=== PATIENT | female | born 1995 | race Caucasian/White ===

== ENCOUNTER 2018-02-17 03:46 | Emergency (ER) | payer BC ==
[2018-02-17] MEDS ORDERED: NS 1,000 ML IV ONE (04:02)
[2018-02-17] MEDS ORDERED: KETOROLAC 15 MG/1 ML SDV IVP ONE (04:02)
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
[2018-02-17 04:29] LABS: PLATELET COUNT 182 10^3/uL (150-400)
[2018-02-17 04:39] LABS: INR 1.02 (0.83-1.16); PROTIME(PATIENT) 13.6 SEC (12.0-15.0)
[2018-02-17 06:26] VITALS: BP 124/89
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
== END 2018-02-17 06:25 | disposition home or self-care (01) ==
LOC: EDUNIT#
DX: S37.032A Laceration of left kidney, unspecified degree, initial encounter (principal); J45.909 Unspecified asthma, uncomplicated; E86.9 Volume depletion, unspecified; V18.4XXA Pedal cycle driver injured in noncollision transport accident in traffic accident, initial encounter; Y92.89 Other specified places as the place of occurrence of the external cause; Y99.8 Other external cause status; Y93.55 Activity, bike riding
CPT/HCPCS: 96374; J1885

== ENCOUNTER 2018-08-31 12:07 | Emergency (ER) | payer BC ==
--- NOTE | 2018-08-31 12:36 | EDPHY ---
H & P Stated Complaint: hx epilepsy/for last month having ? seizures/not eating insomnia Time Seen by Provider: 08/31/18 12:35 HPI/ROS: HPI: This is a 22-year-old female who presents with Chief Complaint: hx epilepsy/for last month having ? seizures/not eating insomnia Location: Body Quality: Seizure-like activity Duration: 1 month Signs and Symptoms: No fever, no neck stiffness, no headache, no chest pain, no shortness of breath, no abdominal pain, no nausea, no vomiting, no tongue biting, no incontinence Timing: Acute on chronic Severity: [id number] Context: Patient has a history of epilepsy that was diagnosed in October of 2017 at the [facility] in [place]. Patient reports that she had an EEG performed at that time and was placed on Keppra. She took Keppra for short amount of time but due to side effects stopped taking it. She is now a student at [employer]. Reports increased stress over the last month or so. She has not been eating and has not been sleeping very well due to worrying about her seizure-like activity. Patient reports that there has been 3 instances where she has seizures that are was unwitnessed. Denies any tongue biting, incontinence, injury. LMP 2-3 weeks ago. Denies drug use. Patient's boyfriend at bedside reports that seizure activity appears with her falling to the ground and then shaking her entire body once on the ground. This only last for a few seconds. Modifying Factors: None Comment: ROS: A comprehensive 10 system review of systems is otherwise negative aside from elements mentioned in the history of present illness. MEDICAL/SURGICAL/SOCIAL HISTORY: Medical history: Epilepsy. Takes control pills. Surgical history: Denies Social history: Never smoked. Family history noncontributory. CONSTITUTIONAL: Tearful, well-developed, well nourished, young adult white female awake and alert, no obvious distress HEENT: Atraumatic and normocephalic, PERRL, EOMI. Nares patent; no rhinorrhea; no nasal mucosal edema. Tympanic membranes clear. Oropharynx clear, no exudate and moist pink mucosa. Airway patent. No lymphadenopathy. No meningismus. Cardiovascular: Normal S1/S2, regular rate, regular rhythm, without murmur rub or gallop. PULMONARY/CHEST: Symmetrical and nontender. Clear to auscultation bilaterally. Good air movement. No accessory muscle usage. ABDOMEN: Soft, nondistended, nontender, no rebound, no guarding, no peritoneal signs, no masses or organomegaly. No CVAT. EXTREMITIES: 2/2 pulses, strength 5/5, no deformities, no clubbing, no cyanosis or edema. NEUROLOGICAL: no focal neuro deficits. GCS 15. Normal cerebellar testing. Cranial nerves 2-12 grossly intact. Speech clear. SKIN: Warm and dry, no erythema. no rash. Good capillary refill. Source: Patient Exam Limitations: No limitations - Personal History LMP (Females 10-55): 22-28 Days Ago Current Tetanus Diphtheria and Acellular Pertussis (TDAP): Yes Tetanus Vaccine Date: < 10 - Medical/Surgical History Hx Asthma: Yes Hx Chronic Respiratory Disease: No Hx Diabetes: No Hx Cardiac Disease: No Hx Renal Disease: No Hx Cirrhosis: No Hx Alcoholism: No Hx HIV/AIDS: No Hx Splenectomy or Spleen Trauma: No Other PMH: epilepsy - Social History Smoking Status: Never smoked Constitutional: Initial Vital Signs Temperature (C) 36.7 C 08/31/18 12:11 Heart Rate 73 08/31/18 12:11 Respiratory Rate 18 08/31/18 12:11 Blood Pressure 121/79 H 08/31/18 12:11 O2 Sat (%) 97 08/31/18 12:11 O2 Delivery Mode Room Air Allergies/Adverse Reactions: No Known Allergies Allergy (Verified 08/31/18 12:09) Home Medications: Medication Instructions Recorded Bcp 02/17/18 Keppra 02/17/18 Medical Decision Making - Diagnostics Imaging Results: Imaging Impressions Head CT 08/31/18 12:37 Impression: No acute intracranial findings. If symptoms persist and clinical suspicion warrants, consider MRI. Findings discussed with Mary Menjivar 08/31/2018 at 13:48. ED Course/Re-evaluation: Vital signs reviewed and stable upon arrival. IV access and laboratory studies ordered. Due to recurrence seizure-like activity, head CT scan ordered 1320: Labs reviewed. No signs of leukocytosis/anemia/platelet dysfunction/WILL/ electrolyte imbalance/. 1355: Called by Radiology who advised head CT scan shows no acute intracranial process. Patient is appropriate to be discharged home with outpatient neurology follow- up. She has politely declined to restart her Keppra until further discussion with Neurology. Also gave her referral to Internal Medicine to establish primary care. This patient was seen under the supervision of my secondary supervising physician. I evaluated care for this patient independently. Discussed this patient with Dr. Ochoa. Differential Diagnosis: Seizure including but not limited to electrolyte abnormality, alcohol withdrawal , medication noncompliance, head injury, and breakthrough seizure. - Data Points Laboratory Results: Laboratory Results 08/31/18 12:25 08/31/18 12:25 08/31/18 08/31/18 08/31/18 12: 12: 12:25 WBC 4.69 10^3/uL 10^3/uL (3.80-9.50) RBC 5.00 10^6/uL 10^6/uL (4.18-5.33) Hgb 15.5 g/dL g/dL (12.6-16.3) Hct 45.7 % % (38.0-47.0) MCV 91.4 fL fL (81.5-99.8) MCH 31.0 pg pg (27.9-34.1) MCHC 33.9 g/dL g/dL (32.4-36.7) RDW 13.1 % % (11.5-15.2) Plt Count 313 10^3/uL 10^3/uL (150-400) MPV 10.6 fL fL (8.7-11.7) Neut % (Auto) 56.3 % % (39.3-74.2) Lymph % (Auto) 32.0 % % (15.0-45.0) [place] % (Auto) 10.0 % % (4.5-13.0) Eos % (Auto) 0.2 % L % (0.6-7.6) Baso % (Auto) 1.3 % % (0.3-1.7) Nucleat RBC Rel Count 0.0 % % (0.0-0.2) Absolute Neuts (auto) 2.64 10^3/uL 10^3/uL (1.70-6.50) Absolute Lymphs (auto) 1.50 10^3/uL 10^3/uL (1.00-3.00) Absolute Monos (auto) 0.47 10^3/uL 10^3/uL (0.30-0.80) Absolute Eos (auto) 0.01 10^3/uL L 10^3/uL (0.03-0.40) Absolute Basos (auto) 0.06 10^3/uL 10^3/uL (0.02-0.10) Absolute Nucleated RBC 0.00 10^3/uL 10^3/uL (0-0.01) Immature Gran % 0.2 % % (0.0-1.1) Immature Gran # 0.01 10^3/uL 10^3/uL (0.00-0.10) Sodium 141 mEq/L mEq/L (135-145) Potassium 4.3 mEq/L mEq/L (3.3-5.0) Chloride 105 mEq/L mEq/L (97-110) Carbon Dioxide 25 mEq/l mEq/l (22-31) Anion Gap 11 mEq/L mEq/L (6-14) BUN 9 mg/dL mg/dL (7-23) Creatinine 0.8 mg/dL mg/dL (0.6-1.0) Estimated GFR > 60 Glucose 92 mg/dL mg/dL (70-100) Calcium 10.0 mg/dL mg/dL (8.5-10.4) Beta HCG, Qual NEGATIVE Departure - Departure Disposition: Home, Routine, Self-Care Clinical Impression: Epilepsy Qualifiers: Epilepsy type: unspecified Intractability: not intractable Status epilepticus: without status epilepticus Qualified Code(s): G40.909 - Epilepsy, unspecified, not intractable, without status epilepticus Condition: Good Instructions: Epilepsy (ED) Additional Instructions: Establish care with primary care physician. Please follow-up with Neurology in the next 3-5 days to discuss epilepsy and medication options. Follow-Up: Please follow-up as noted above. Follow up sooner if your condition worsens or if you develop any new problems Call as soon as possible for an appointment. Be clear when you call for an appointment that this is an Emergency Department follow-up. Contact the Emergency Department if you are having trouble arranging follow up care. Our referrals are not based on your insurance network. When time allows, contact your insurance carrier to verify the referral physician is in your plan. If not, get a referral for an in-senior network security architect. Please ask us if you have any questions. Referrals: Ruben Smith MD [Medical Doctor] - As per Instructions Caesar Chase DO [Doctor of Osteopathy] - As per Instructions
[2018-08-31 12:50] LABS: PLATELET COUNT 313 10^3/uL (150-400)
[2018-08-31 14:11] VITALS: BP 129/84
== END 2018-08-31 14:10 | disposition home or self-care (01) ==
DX: G40.909 Epilepsy, unspecified, not intractable, without status epilepticus (principal); J45.909 Unspecified asthma, uncomplicated